=== PATIENT | female | born 1965 | race Caucasian/White ===

== ENCOUNTER → 2017-01-18 | Outpatient (CLI) | payer OTHER ==
--- NOTE | 2017-01-18 13:34 | DIAGNOSTIC IMAGING REPORT ---
KUB CLINICAL HISTORY: CONSTIPATION COMPARISON STUDY: None FINDINGS: There is scattered stool present throughout the colon. There is no pathologic bowel dilatation. There are multiple nonspecific pelvic basin calcifications, likely representing phleboliths. IMPRESSION: No evidence of pathologic bowel dilatation. Electronically signed by: Abilio Pearson M.D. 01/18/2017 1:33 PM Dictated Date/Time: 01/18/2017 1:32 PM
[2017-01-18 17:50] LABS: LYME DISEASE AB IGG NEG (NEG); LYME DISEASE AB IGM NEG (NEG)
== END | disposition home or self-care (01) ==
LOC: C.RAD 13:02
DX: L25.1 Unspecified contact dermatitis due to drugs in contact with skin (principal); R53.82 Chronic fatigue, unspecified; N95.1 Menopausal and female climacteric states; F41.1 Generalized anxiety disorder; E66.3 Overweight; K59.09 Other constipation